=== PATIENT | female | born 1975 | race Caucasian/White ===

== ENCOUNTER 2020-02-10 13:34 | Emergency (ER) | payer OTHER, SELFPAY ==
--- NOTE | ~2020-02-10 | XR_ITS ---
XR toe 5th RT min 2V DATE: 02/10/2020 14:32 INDICATION: Pain and bruising for one month. No known injury. TECHNIQUE: 3 views COMPARISON: 02/07/2018 right foot FINDINGS: Old healed fracture of proximal phalanx with virtually no residual deformity. No recent fracture or dislocation, periosteal reaction or bone destruction. No radiopaque foreign laurita dy or subcutaneous emphysema. IMPRESSION: No significant abnormality Reviewed, dictated and finalized at location B. IMPRESSION: No significant abnormality
[2020-02-10 13:50] VITALS: BP 130/81; PULSE 116; RESP 21; TEMP 36.8; O2SAT 99
--- NOTE | 2020-02-10 14:05 | ED.EXTPRO ---
HPI - Extremity Problem General Chief complaint: Extremity Problem,Nontraumatic Stated complaint: right pinky toe Time Seen by Provider: 02/10/20 14:07 Source: patient and RN notes reviewed Mode of arrival: ambulatory Limitations: no limitations History of Present Illness HPI Narrative: This is a 44 years old female presents to the office for an evaluation of right pinky toe discoloration for one months. She was hospitalize for fluid retention secondary to kidney issue. She claims that they took out 60lbs worth of fluid in 7days. She does not recall any trauma or injury. to her foot. She also said, as long as she messages her affected toe; it will turn slight pink/red; but once she stops it will turn dark and purple. She able to move it without any pain with normal sensation. While she was message her toe last night, she noticed there was a splinter; so she pulled it out. She called his program review director who recommended she come here for professional opinion. Denies history of blood clot. She is not on any anticoagulation medication. Related Data Home Medications Medication Instructions Recorded Confirmed albuterol sulfate 2 inh INHALATION BID 02/10/20 02/10/20 budesonide-formoterol [Symbicort] 1 inh INHALATION DAILY 02/10/20 02/10/20 bupropion HCl 150 mg PO DAILY 02/10/20 02/10/20 duloxetine 60 mg PO DAILY 02/10/20 02/10/20 famotidine 40 mg PO DAILY 02/10/20 02/10/20 furosemide 80 mg PO DAILY 02/10/20 02/10/20 losartan 50 mg PO DAILY 02/10/20 02/10/20 metolazone 10 mg PO DAILY 02/10/20 02/10/20 potassium chloride 10 meq PO DAILY 02/10/20 02/10/20 prednisone 40 mg PO DAILY 02/10/20 02/10/20 rosuvastatin 20 mg PO DAILY 02/10/20 02/10/20 tizanidine 4 mg PO DAILY 02/10/20 02/10/20 Allergies Allergy/AdvReac Type Severity Reaction Status Date / Time Penicillins Allergy Unknown Verified 11/11/18 17:06 Review of Systems Review of Systems: Narrative: CONSTITUTIONAL: Denies fever, chills CARDIOVASCULAR: Denies chest pain, palpitation RESPIRATORY: Denies dyspnea GASTROINTESTINAL: Denies abdominal pain, nausea, vomiting GENITOURINARY: Denies urinary symptoms or discharge SKIN: Denies rash MUSCULOSKELETAL: Denies acute back pain NEUROLOGIC: Denies lightheaded All other systems reviewed are negative, except as documented in HPI. PMFSH Comments At time of signature, I agree with nursing past medical, surgical, social and family history. There is no relevant family history pertinent to the presenting complaint. Exam Narrative: Exam Narrative: GENERAL: This is a well-nourished, well-developed patient, in no apparent distress. CARDIOVASCULAR: Regular rate and rhythm without murmurs, gallops, or rubs. RESPIRATORY: Clear to auscultation. Breath sounds equal bilaterally. No wheezes, rales, or rhonchi. GASTROINTESTINAL: Abdomen soft, non-tender, nondistended. Bowel sounds are active. No hepato-splenomegaly, or palpable masses. No guarding. SKIN: warm, intact with no suspicious lesions or rash, good texture and turgor. NEURO: awake, alert, and oriented to person, place and time. There were no obvious focal neurologic abnormalities. Steady gait Extremities: left foot normal; joints grossly intact. Right foot normal. Right pinky noted ecchymosis and tone pain when I am excited. There is a point of tenderness on the dorsal side of mid phalange; however there no tenderness with ROM. NO erythema/edematous/warmth to palpation. Pedal pulse intact. Graff Coma Scale Eye Opening: Spontaneous 4 Jacobo Coma Scale Motor: Obeys Commands 6 Graff Coma Scale Verbal: Oriented 5 Course Vital Signs Vital signs: Vital Signs Temperature 98.2 F 02/10/20 13:50 Pulse Rate 116 H 02/10/20 13:50 Respiratory Rate 21 H 02/10/20 13:50 Blood Pressure 130/81 02/10/20 13:50 Pulse Oximetry 99 02/10/20 13:50 Temperature 98.2 F 02/10/20 13:50 Pulse Rate 116 H 02/10/20 13:50 Respiratory Rate 21 H 02/10/20 13:50 Blood Pressure 130/81
== END 2020-02-10 14:53 | disposition home or self-care (01) ==
PROVIDERS: Emergency Provider Nurse Practitioner; PCP Internal Medicine
DX: M79.674 Pain in right toe(s) (principal); R58 Hemorrhage, not elsewhere classified
CPT/HCPCS: 73660; 99213; G0463

== ENCOUNTER 2022-12-04 10:58 | Emergency (ER) | payer MEDICARE, MEDICAID, SELFPAY ==
--- NOTE | ~2022-12-04 | XR_ITS ---
EXAMINATION: XR chest 2V 12/04/2022 12:06 INDICATION: Cough. History of pneumonia. PROCEDURE: 2 view chest COMPARISON: No prior studies for comparison. FINDINGS: The lungs are clear. The cardiomediastinal silhouette is within normal limits. There are no pleural effusions. There is no pneumothorax suspected. IMPRESSION: 1: NO ACUTE CARDIOPULMONARY DISEASE. Reviewed, dictated and finalized at location A.
[2022-12-04 11:17] VITALS: BP 111/69; PULSE 73; RESP 18; TEMP 36.7; O2SAT 98
[2022-12-04 11:32] VITALS: BP 111/69; PULSE 73; RESP 18; TEMP 36.7; O2SAT 98
--- NOTE | 2022-12-04 11:56 | ED.GENADULT ---
HPI - General Adult General Chief complaint: Upper Respiratory Infection Stated complaint: cold cough Source: patient Mode of arrival: ambulatory Limitations: no limitations History of Present Illness HPI narrative: Patient presents for evaluation of sick symptoms for last 4 days. Symptoms include sinus congestion, mucopurulent discharge from the nares, cough which is productive of yellow sputum, fatigue, nausea, headache, and left sided otalgia. She also had a sore throat but that has improved. She reports some red bumps adjacent to her nose. No recent sick contacts. She is a former smoker, with quit date about 3 yrs ago. She took some OTC cough medication. She has a hx of pneumonia and came in to ensure she currently does not have pneumonia. Related Data Home Medications Medication Instructions Recorded Confirmed albuterol sulfate 90 mcg/actuation 2 inh inhalation BID 02/10/20 12/04/22 aerosol inhaler budesonide-formoterol HFA 160 1 inh inhalation DAILY 02/10/20 12/04/22 mcg-4.5 mcg/actuation aerosol inhaler (Symbicort) bupropion HCl 150 mg tablet,12 hr 150 mg PO DAILY 02/10/20 12/04/22 sustained-release duloxetine 60 mg capsule,delayed 60 mg PO DAILY 02/10/20 12/04/22 release famotidine 40 mg tablet 40 mg PO DAILY 02/10/20 12/04/22 furosemide 80 mg tablet 80 mg PO DAILY 02/10/20 12/04/22 losartan 50 mg tablet 50 mg PO DAILY 02/10/20 12/04/22 metolazone 10 mg tablet 10 mg PO DAILY 02/10/20 12/04/22 potassium chloride 10 mEq 10 meq PO DAILY 02/10/20 12/04/22 tablet,extended release rosuvastatin 20 mg tablet 20 mg PO DAILY 02/10/20 12/04/22 acetaminophen 300 mg-codeine 30 mg tablet 12/04/22 tablet clopidogrel 75 mg tablet mg 12/04/22 gabapentin 100 mg capsule mg 12/04/22 semaglutide 0.25 mg or 0.5 mg (2 mg subcut 12/04/22 mg/3 mL) subcutaneous pen injector (Ozempic) Allergies Allergy/AdvReac Type Severity Reaction Status Date / Time Penicillins Allergy Unknown Unknown Verified 12/04/22 11:08 Review of Systems Review of Systems: CONSTITUTIONAL: Denies fever, chills, or sweats. EYES: Denies visual changes, redness, or discharge. ENT: Reports sinus congestion, yellow drainage from the nares, left-sided ear pain. Reports recent sore throat, now resolved. CARDIOVASCULAR: Denies chest pain, palpitations, or edema. RESPIRATORY: Reports productive cough of yellow sputum with SOB GASTROINTESTINAL: Reports nausea. Denies abdominal pain, vomiting, or diarrhea. GENITOURINARY: Denies dysuria or hematuria. SKIN: Denies rash or itching. MUSCULOSKELETAL: Denies back pain, joint pain, or myalgia. NEUROLOGIC: Reports headache. Denies numbness, dizziness, or weakness. PSYCHIATRIC: Denies anxiety or depression. [facility] Past Medical History Medical History (Updated 12/04/22 @ 12:18 by JENNIFER Mendez, ) CKD (chronic kidney disease) Fibromyalgia Surgical History Surgical History No pertinent past surgical history Family History Family History Mother Family history non-contributory Social History Social History Smoking status: Former smoker Substance use: never Gender identity (if verbalized by the patient): Female Spiritual care concerns: No Exam Narrative: GENERAL: Well-appearing, well-nourished, and in no acute distress. HEAD: Normocephalic, atraumatic. EYES: PERRLA and EOMI. ENT: Nares clear, no rhinorrhea or epistaxis. Mucous membranes moist. Oropharynx without tonsillar hypertrophy exudate or other lesions. Bilateral TMs pearly coffey nonbulging NECK: Supple. No adenopathy or masses. No carotid bruits or JVD CHEST: Rales and mild wheezing noted in posterior lung phillips bilaterally. Cough present on exam. HEART: Regular rate and rhythm. No murmur heard. Normal peripheral pulse
== END 2022-12-04 12:20 | disposition home or self-care (01) ==
PROVIDERS: Emergency Provider Nurse Practitioner; PCP Internal Medicine
DX: J45.909 Unspecified asthma, uncomplicated (principal); J01.10 Acute frontal sinusitis, unspecified; Z87.891 Personal history of nicotine dependence; M79.7 Fibromyalgia; N18.9 Chronic kidney disease, unspecified
CPT/HCPCS: 71046; 99213; G0463